=== PATIENT | male | born 1975 | race Caucasian/White ===

== ENCOUNTER 2020-03-23 11:05 | Emergency (ER) | payer BC ==
[2020-03-23] MEDS ORDERED: Aspirin 81 MG Tab.Chew PO ONE (11:07)
[2020-03-23] MEDS: Sodium Chloride 0.9% 10 ML Syringe FLUSH PRN ×4 (11:10→14:27)
[2020-03-23] MEDS ORDERED: Labetalol 20 MG/4 ML Syringe IVPUSH ONE ×2 (11:13→14:21)
[2020-03-23] MEDS: Nitroglycerin 0.4 MG Tab.SL SL PRN ×3 (11:16→11:30)
--- NOTE | 2020-03-23 11:19 | EDM.PDOC ---
ED HPI GENERAL MEDICAL PROBLEM - General Chief Complaint: Cardiovascular Problem Stated Complaint: CHEST PAIN Time Seen by Provider: 03/23/20 11:14 Source of Information: Reports: Patient History Limitations: Reports: No Limitations - History of Present Illness INITIAL COMMENTS - FREE TEXT/NARRATIVE: Presents with substernal chest pressure radiating to bilateral arms (worse on left), associated with SOB. Onset yesterday afternoon, symptoms wax and wane, worse with exertion. Denies prior h/o CAD. PMHx includes HTN, HLD, and T2DM. Father at 49yo from [place] and CVA. Patient quit smoking @3 weeks ago. Onset Date: 03/22/20 Location: Reports: Chest Severity: Moderate Associated Symptoms: Reports: Chest Pain, Shortness of Breath - Related Data Allergies Allergy/AdvReac Type Severity Reaction Status Date / Time No Known Allergies Allergy Verified 03/23/20 11:19 Home Meds: Home Meds Gabapentin [Neurontin] 300 mg PO QID 03/23/20 [History] Losartan/Hydrochlorothiazide [Hyzaar 100-25 Tablet] 1 tab PO DAILY 03/23/20 [History] atenoloL [Atenolol] 50 mg PO DAILY 03/23/20 [History] atorvaSTATin [Lipitor] 20 mg PO DAILY 03/23/20 [History] metFORMIN [Glucophage XR] 500 mg PO BID 03/23/20 [History] Past Medical History Cardiovascular History: Reports: High Cholesterol, Hypertension. Denies: CAD, [place] Neurological History: Reports: Neuropathy, Diabetic Endocrine/Metabolic History: Reports: Diabetes, Type II Social & Family History - Family History Family Medical History: No Pertinent Family History - Tobacco Use Tobacco Use Status *Q: Former Tobacco User Tobacco Use Within Last Twelve Months: Cigarettes - Recreational Drug Use Recreational Drug Use: No ED ROS GENERAL - Review of Systems Review Of Systems: Comprehensive ROS is negative, except as noted in HPI. ED EXAM, GENERAL - Physical Exam Exam: See Below Exam Limited By: No Limitations General Appearance: Alert, WD/WN, No Apparent Distress Throat/Mouth: No Airway Compromise Head: Atraumatic, Normocephalic Neck: Full Range of Motion Respiratory/Chest: No Respiratory Distress, Lungs Clear, Normal Breath Sounds, No Accessory Muscle Use, Chest Non-Tender Cardiovascular: Regular Rate, Rhythm, No Edema, No Gallop, No Murmur GI/Abdominal: Tender (epigastric) Back Exam: Full Range of Motion Extremities: Normal Range of Motion, Non-Tender, No Pedal Edema Neurological: Alert, Oriented, Normal Cognition, No Motor/Sensory Deficits Psychiatric: Normal Affect, Normal Mood Skin Exam: Warm, Dry, Intact #1 Interpretation EKG Date: 03/23/20 Time: 11:05 Rhythm: NSR Rate (Beats/Min): 87 [place]: Normal P-Wave: Present QRS: Normal ST-T: Normal QT: Normal Comparison: NA - No Prior EKG Course - Vital Signs Last Recorded V/S: Last Vital Signs Temp 37.0 C 03/23/20 11:05 Pulse 87 03/23/20 11:05 Resp 18 03/23/20 11:05 BP 167/102 H 03/23/20 11:30 Pulse Ox 100 03/23/20 11:05 - Orders/Labs/Meds Orders: Active Orders 24 hr Category Date Time Status EKG Documentation Completion [RC] ASDIRECTED Care 03/23/20 11:07 Active Sodium Chloride 0.9% [Saline Flush] Med 03/23/20 11:07 Active 10 ml FLUSH ASDIRECTED PRN Saline Lock Insert [OM.PC] Routine Oth 03/23/20 11:07 Ordered EKG 12 Lead [EK] Stat Ther 03/23/20 11:06 Ordered Medication Orders Sodium Chloride (Saline Flush) 10 ml FLUSH ASDIRECTED PRN PRN Reason: Keep Vein Open Last Admin: 03/23/20 12:08 Dose: 10 ml Documented by: Admin: 03/23/20 11:30 Dose: 10 ml Documented by: Admin: 03/23/20 11:10 Dose: 10 ml Documented by: IMELDA Labs: Laboratory Tests 03/23/20 03/23/20 03/23/20 Range/Units 11:10 11:10 11:10 WBC 7.0 (3.2-10.1) x10-3/uL RBC 6.02 H (3.90-5.90) x10(6)uL Hgb 16.7 (12.9-17.7) g/dL Hct 50.6 H (38.3-50.1) % MCV 84.0 (80.8-98.7) fL MCH 27.8 (27.0-33.3) pg MCHC 33.1 (28.7-35.3) g/dL RDW 12.6 (12.4-15.0) % Plt Count 266 (117-477) x10(3)uL MPV 8.2 (6.7-11.0) fL Neut % (Auto) 56.6 (40.3-71.8) % Lymph % (Auto) 35.4 (15.8-45.3) % [place] % (Auto) 5.1 L (5.5-15.2) % Eos % (Auto) 1.8 (0.1-6.8) % Baso % (Auto) 1.1 (0.3-3.8) % Neut # (Auto) 3.9 (1.7-6.9) x10-3/uL Lymph # (Auto) 2.5 (0.5-4.5) x10-3/uL [place] # (Auto) 0.4 (0.0-1.2) x10-3/uL Eos # (Auto) 0.1 (0.0-0.6) x10-3/uL Baso # (Auto) 0.1 (0.0-0.3) x10-3/uL PT 10.2 (9.0-11.1) sec INR 0.94 L (1.00-1.24) APTT 23.1 L (24.4-33.2) SECONDS D-Dimer, Quantitative 0.24 (0.0-0.59) mg/LFEU Sodium 135 (135-145) mmol/L Potassium 4.0 (3.5-5.3) mmol/L Chloride 97 L (100-110) mmol/L Carbon Dioxide 27 (21-32) mmol/L BUN 10 (7-18) mg/dL Creatinine 1.1 (0.70-1.30) mg/dL Est Cr Clr Drug Dosing TNP Estimated GFR (MDRD) > 60 (>60) BUN/Creatinine Ratio 9.1 (9-20) Glucose 154 H (80-116) mg/dL Calcium 9.0 (8.6-10.2) mg/dL Total Bilirubin 0.5 (0.1-1.3) mg/dL AST 16 (5-25) IU/L ALT 33 (12-36) U/L Alkaline Phosphatase 56 (56-112) IU/L Troponin I (4.0-60.3) pg/mL Total Protein 8.7 H (6.0-8.0) g/dL Albumin 4.4 (3.5-5.2) g/dL Globulin 4.3 g/dL Albumin/Globulin Ratio 1.0 Lipase (73-393) U/L 03/23/20 03/23/20 Range/Units 11:10 11:10 WBC (3.2-10.1) x10-3/uL RBC (3.90-5.90) x10(6)uL Hgb (12.9-17.7) g/dL Hct (38.3-50.1) % MCV (80.8-98.7) fL MCH (27.0-33.3) pg MCHC (28.7-35.3) g/dL RDW (12.4-15.0) % Plt Count (117-477) x10(3)uL MPV (6.7-11.0) fL Neut % (Auto) (40.3-71.8) % Lymph % (Auto) (15.8-45.3) % [place] % (Auto) (5.5-15.2) % Eos % (Auto) (0.1-6.8) % Baso % (Auto) (0.3-3.8) % Neut # (Auto) (1.7-6.9) x10-3/uL Lymph # (Auto) (0.5-4.5) x10-3/uL [place] # (Auto) (0.0-1.2) x10-3/uL Eos # (Auto) (0.0-0.6) x10-3/uL Baso # (Auto) (0.0-0.3) x10-3/uL PT (9.0-11.1) sec INR (1.00-1.24) APTT (24.4-33.2) SECONDS D-Dimer, Quantitative (0.0-0.59) mg/LFEU Sodium (135-145) mmol/L Potassium (3.5-5.3) mmol/L Chloride (100-110) mmol/L Carbon Dioxide (21-32) mmol/L BUN (7-18) mg/dL Creatinine (0.70-1.30) mg/dL Est Cr Clr Drug Dosing Estimated GFR (MDRD) (>60) BUN/Creatinine Ratio (9-20) Glucose (80-116) mg/dL Calcium (8.6-10.2) mg/dL Total Bilirubin (0.1-1.3) mg/dL AST (5-25) IU/L ALT (12-36) U/L Alkaline Phosphatase (56-112) IU/L Troponin I 5.5 (4.0-60.3) pg/mL Total Protein (6.0-8.0) g/dL Albumin (3.5-5.2) g/dL Globulin g/dL Albumin/Globulin Ratio Lipase 90 (73-393) U/L Meds: Medications Generic Name Dose Route Start Last Admin Trade Name Freq PRN Reason Stop Dose Admin Sodium Chloride 10 ml 03/23/20 11:07 03/23/20 12:08 Saline Flush FLUSH 10 ml ASDIRECTED PRN Administration Keep Vein Open Discontinued Medications Generic Name Dose Route Start Last Admin Trade Name Freq PRN Reason Stop Dose Admin Aspirin 324 mg 03/23/20 11:07 03/23/20 11:10 Aspirin PO 03/23/20 11:08 324 mg ONETIME ONE Administration Iopamidol 100 ml 03/23/20 12:11 03/23/20 12:21 Isovue-370 (76%) IV 03/23/20 12:12 100 ml . DIRECTED ONE Administration Labetalol HCl 10 mg 03/23/20 11:13 03/23/20 11:24 Normodyne IVPUSH 03/23/20 11:14 10 mg ONETIME ONE Administration Protocol Morphine Sulfate 4 mg 03/23/20 12:00 03/23/20 12:07 Morphine IVPUSH 03/23/20 12:01 4 mg ONETIME ONE Administration Morphine Sulfate 4 mg 03/23/20 13:40 Morphine IVPUSH 03/23/20 13:41 ONETIME ONE Nitroglycerin 0.4 mg 03/23/20 11:13 03/23/20 11:30 Nitrostat SL 0.4 mg Q5M PRN Administration Chest Pain Nitroglycerin 1 gm 03/23/20 13:41 Nitro-Bid 2% TOP 03/23/20 13:42 ONETIME ONE Pantoprazole Sodium 40 mg 03/23/20 11:20 03/23/20 11:36 Protonix Iv IVPUSH 03/23/20 11:21 40 mg ONETIME ONE Administration - Radiology Interpretation Free Text/Narrative:: CXR: No acute process. (ED provider interpretation) CTA Chest: IMPRESSION: 1. Probable artifactual changes due to motion at the ascending aorta and pulmonary artery, no definite intimal dissection was seen. No aneurysmic dilatation was seen. 2. Mild interstitial prominence in the lungs could be on the basis of fluid overload and should be correlated clinically. 3. Mild degree of obstructive airway disease suggested. Dictated by: Uziel Payton MD. CTA Chest was reviewed by Dr. Garcia ([facility] CT Surgeon) and [facility] Radiologist. No aortic dissection was seen. - Re-Assessments/Exams Free Text/Narrative Re-Assessment/Exam: 03/23/20 12:05 ASA 324mg PO, NTG SL x 3, Labetolol 10mg IV, and Protonix 40mg IV given. Chest pain improved from 8/10 to 5/10 (now more localized to left side of chest, described as an ache). SOB improved. BP improved to 140/93. Heart score=4 03/23/20 13:25 Chest pain improved to 3/10. 03/23/20 13:48 Dr. Cuevas accepts patient for transfer to [facility]. Departure - Departure Time of Disposition: 13:51 Disposition: DC/Tfer to Acute Hospital 02 Reason for Transfer *Q: Other Condition: Fair Clinical Impression: Unstable angina, Hypertension, poor control Forms: ED Department Discharge Sepsis Event Note (ED) - Focused Exam Vital Signs: Vital Signs Temp Pulse Resp BP BP Pulse Ox 03/23/20 11:30 167/102 H 03/23/20 11:25 186/108 H 03/23/20 11:16 206/107 H 03/23/20 11:05 37.0 C 87 18 228/118 H 100 - My Orders Last 24 Hours: My Active Orders 03/23/20 11:06 EKG 12 Lead [EK] Stat 03/23/20 11:07 EKG Documentation Completion [RC] ASDIRECTED Sodium Chloride 0.9% [Saline Flush] 10 ml FLUSH ASDIRECTED PRN Saline Lock Insert [OM.PC] Routine - Assessment/Plan Last 24 Hours: My Active Orders 03/23/20 11:06 EKG 12 Lead [EK] Stat 03/23/20 11:07 EKG Documentation Completion [RC] ASDIRECTED Sodium Chloride 0.9% [Saline Flush] 10 ml FLUSH ASDIRECTED PRN Saline Lock Insert [OM.PC] Routine
[2020-03-23] MEDS ORDERED: Pantoprazole 40 MG Vial IVPUSH ONE (11:20)
[2020-03-23 11:54] VITALS: BP 228/118; PULSE 87
[2020-03-23] MEDS ORDERED: Morphine 4 MG/ML VIAL IVPUSH ONE ×2 (12:00→13:40)
--- NOTE | 2020-03-23 12:08 | CR ---
INDICATION: Chest pain. CHEST ONE VIEW: Portable AP upright view of the chest was obtained 03/23/20 - no comparisons. The heart is normal in size and shape. The aorta is somewhat tortuous. Overlying EKG leads are noted. No consolidating pneumonia or effusion was seen. IMPRESSION: No acute process. MTDD
[2020-03-23] MEDS ORDERED: Iopamidol 755 Mg/ML 100 ML Bottle IV ONE (12:11)
--- NOTE | 2020-03-23 12:53 | CT ---
INDICATION: Chest pain, question aortic dissection. CT ANGIOGRAPHY OF THE CHEST: Spiral 3.75 mm axial sections were obtained through the chest with 100 cc Isovue 370 at 3 cc per second with sagittal and coronal reconstructions and axial reconstructions 03/23/20. What appears to be motion artifact is noted at the main pulmonary artery and the proximal to distal ascending aorta. Most likely the appearance of motion is due to the heart motion. The artifact has an appearance suggesting intimal dissection, but is as mentioned above felt to be artifactual. No definite true intimal dissection or aneurysmic dilatation of the aorta or pulmonary artery was identified. The heart did not appear enlarged. No pericardial effusion was seen. No upper significant upper abdominal abnormality was identified. A definite active infiltrate or effusion was not identified although the lungs may be very slightly congested with a mild degree of interstitial prominence. This could be on the basis of fluid overload, but should be correlated clinically. There appear to be some emphysematous changes with no definite active infiltrate or effusion otherwise suggested. IMPRESSION: 1. Probable artifactual changes due to motion at the ascending aorta and pulmonary artery, no definite intimal dissection was seen. No aneurysmic dilatation was seen. 2. Mild interstitial prominence in the lungs could be on the basis of fluid overload and should be correlated clinically. 3. Mild degree of obstructive airway disease suggested. Total exam DLP was 1088.58 mGy-cm. Report was called to Dr. Villarreal at approximately [address] [facility]
[2020-03-23] MEDS ORDERED: Nitroglycerin 2% Oint 1 GM UD Packet TOP ONE (13:41)
== END 2020-03-23 15:15 ==
LOC: FB.ED 11:05
DX: I20.0 Unstable angina (principal); I10 Essential (primary) hypertension; E78.00 Pure hypercholesterolemia, unspecified; E11.40 Type 2 diabetes mellitus with diabetic neuropathy, unspecified; Z87.891 Personal history of nicotine dependence; Z79.899 Other long term (current) drug therapy
CPT/HCPCS: 36415; 71045; 71275; 80053; 83690; 84484; 85025; 85379; 85610; 85730; 93005; 96374; 96375; 96376; 99285-25; A9270-GY; C9113; J2270; J3490; Q9967

== ENCOUNTER 2020-08-23 11:35 | Emergency (ER) | payer BC ==
[2020-08-23] MEDS ORDERED: Sodium Chloride 0.9% 1,000 ML IV ONE (11:45)
[2020-08-23] MEDS ORDERED: Ticagrelor 90 MG Tab PO ONE ×2 (11:51→11:54)
[2020-08-23] MEDS ORDERED: Heparin Sodium 5,000 Units/ML Vial ONE (11:55)
[2020-08-23] MEDS ORDERED: Heparin Sodium 5,000 Units/ML Vial IVPUSH ONE (12:00)
[2020-08-23] MEDS ORDERED: Heparin Sodium/0.45% NaCl 25,000 UNITS/500 ML BAG IV SCH (12:00)
--- NOTE | 2020-08-23 12:00 | PCM.EKG ---
#1 Interpretation EKG Date: 08/23/20 Time: 11:32 EKG Interpretation Comments: Sinus rhythm, rate 62, normal axis, ST-T segment elevations in leads II, 3, aVF and reciprocal depression in leads V1 and V2. This is likely an inferior/posterior acute [place]. Diffuse ST-T segment changes in the remaining leads. Likely ST segment elevation in aVR.
--- NOTE | 2020-08-23 12:06 | EDM.PDOC ---
ED HPI GENERAL MEDICAL PROBLEM - General Chief Complaint: Chest Pain Stated Complaint: CHEST/NECK PAIN Time Seen by Provider: 08/23/20 11:35 Source of Information: Reports: Old Records History Limitations: Reports: No Limitations - History of Present Illness INITIAL COMMENTS - FREE TEXT/NARRATIVE: 44-year-old gentleman came to the emergency department via private vehicle due to acute left-sided chest pain. He states that the pain is a crushing type pain and radiates to the right side of his chest into his left shoulder. He does have a recent history of [place]. He states that he had a myocardial infarction in April 2020. He states that he quit smoking after that myocardial infarction has been taking medications as directed including a baby aspirin each day. He was given 481 mg aspirins to chew on admission. Review of EKG shows likely inferior/posterior [place]. Patient was given 180 mg Brilinta, 4000 unit heparin bolus followed by a 1000 unit/h heparin drip. Patient will be transferred to [facility] via EMS. Dr. Barba will be the receiving rocket motor tester. I spoke with Dr. Barba on the phone prior to transfer. Onset: Sudden - Related Data Allergies Allergy/AdvReac Type Severity Reaction Status Date / Time No Known Allergies Allergy Verified 03/23/20 11:19 Home Meds: Home Meds Gabapentin [Neurontin] 300 mg PO QID 03/23/20 [History] Losartan/Hydrochlorothiazide [Hyzaar 100-25 Tablet] 1 tab PO DAILY 03/23/20 [History] atenoloL [Atenolol] 50 mg PO DAILY 03/23/20 [History] atorvaSTATin [Lipitor] 20 mg PO DAILY 03/23/20 [History] metFORMIN [Glucophage XR] 500 mg PO BID 03/23/20 [History] Past Medical History Cardiovascular History: Reports: High Cholesterol, Hypertension Respiratory History: Reports: Sleep Apnea Neurological History: Reports: Neuropathy, Diabetic Endocrine/Metabolic History: Reports: Diabetes, Type II - Infectious Disease History Infectious Disease History: Reports: Chicken Pox - Past Surgical History Cardiovascular Surgical History: Reports: None Respiratory Surgical History: Reports: None Social & Family History - Family History Family Medical History: No Pertinent Family History - Caffeine Use Caffeine Use: Reports: Coffee, Soda ED ROS GENERAL - Review of Systems Review Of Systems: See Below Constitutional: Reports: No Symptoms HEENT: Reports: No Symptoms Respiratory: Reports: Shortness of Breath Cardiovascular: Reports: Chest Pain, Edema Endocrine: Reports: No Symptoms GI/Abdominal: Reports: No Symptoms : Reports: No Symptoms Musculoskeletal: Reports: No Symptoms Skin: Reports: No Symptoms Neurological: Reports: No Symptoms Psychiatric: Reports: Anxiety Hematologic/Lymphatic: Reports: No Symptoms Immunologic: Reports: No Symptoms ED EXAM, GENERAL - Physical Exam Exam: See Below Exam Limited By: No Limitations General Appearance: Alert, WD/WN, Moderate Distress Head: Atraumatic, Normocephalic Respiratory/Chest: No Respiratory Distress, Crackles Cardiovascular: Normal Peripheral Pulses, No Rub, Tachycardia. No: Diastolic Murmur, Systolic Murmur Peripheral Pulses: 2+: Radial (L), Radial (R), Dorsalis Pedis (L), Dorsalis Pedis (R) GI/Abdominal: Normal Bowel Sounds, Non-Tender Psychiatric: Anxious Skin Exam: Warm, Dry Course - Orders/Labs/Meds Orders: Active Orders 24 hr Category Date Time Status EKG Documentation Completion [RC] ASDIRECTED Care 08/23/20 11:47 Active EKG Documentation Completion [RC] STAT Care 08/23/20 11:47 Active Chest 1V Frontal [CR] Stat Exams 08/23/20 Taken COMPREHENSIVE METABOLIC PN,CMP [CHEM] Stat Lab 08/23/20 11:45 Received LACTATE SEPSIS W/ REFLEX [CHEM] Stat Lab 08/23/20 11:45 Received PRO B-TYPE NATRIUR PEPT,BNPPRO [CHEM] Stat Lab 08/23/20 11:45 Received TROPONIN I [CHEM] Stat Lab 08/23/20 11:45 Received Heparin Sodium Med 08/23/20 12:00 Once 4,000 units IVPUSH ONETIME ONE Sodium Chloride 0.9% [Normal Saline] 1,000 ml Med 08/23/20 11:45 Active IV .BOLUS EKG 12 Lead [EK] Routine Ther 08/23/20 11:47 Ordered Medication Orders Heparin Sodium (Porcine) (Heparin Sodium 5,000 Units/Ml Vial) 4,000 units IVPUSH ONETIME ONE Stop: 08/23/20 12:01 Sodium Chloride (Normal Saline) 1,000 mls @ 999 mls/hr IV .BOLUS ONE Stop: 08/23/20 12:45 Labs: Laboratory Tests 08/23/20 Range/Units 11:45 WBC 13.1 H (3.2-10.1) x10-3/uL RBC 5.77 (3.90-5.90) x10(6)uL Hgb 16.5 (12.9-17.7) g/dL Hct 50.0 (38.3-50.1) % MCV 86.7 (80.8-98.7) fL MCH 28.6 (27.0-33.3) pg MCHC 33.0 (28.7-35.3) g/dL RDW 13.5 (12.4-15.0) % Plt Count 317 (117-477) x10(3)uL MPV 8.3 (6.7-11.0) fL Neut % (Auto) 79.6 H (40.3-71.8) % Lymph % (Auto) 15.2 L (15.8-45.3) % [place] % (Auto) 4.0 L (5.5-15.2) % Eos % (Auto) 0.4 (0.1-6.8) % Baso % (Auto) 0.8 (0.3-3.8) % Neut # (Auto) 10.4 H (1.7-6.9) x10-3/uL Lymph # (Auto) 2.0 (0.5-4.5) x10-3/uL [place] # (Auto) 0.5 (0.0-1.2) x10-3/uL Eos # (Auto) 0.1 (0.0-0.6) x10-3/uL Baso # (Auto) 0.1 (0.0-0.3) x10-3/uL Meds: Medications Generic Name Dose Route Start Last Admin Trade Name Freq PRN Reason Stop Dose Admin Heparin Sodium (Porcine) 4,000 units 08/23/20 12:00 Heparin Sodium 5,000 Units/Ml Vial IVPUSH 08/23/20 12:01 ONETIME ONE Sodium Chloride 1,000 mls @ 999 mls/hr 08/23/20 11:45 Normal Saline IV 08/23/20 12:45 .BOLUS ONE Discontinued Medications Generic Name Dose Route Start Last Admin Trade Name Freq PRN Reason Stop Dose Admin Heparin Sodium (Porcine) Confirm 08/23/20 11:55 Heparin Sodium 5,000 Units/Ml Vial Administered 08/23/20 11:56 Dose 5,000 units .ROUTE .STK-MED ONE Ticagrelor 180 mg 08/23/20 11:51 Ticagrelor 90 Mg Tab PO 08/23/20 11:52 ONETIME ONE Ticagrelor Confirm 08/23/20 11:54 Ticagrelor 90 Mg Tab Administered 08/23/20 11:55 Dose 180 mg PO .STK-MED ONE Departure - Departure Time of Disposition: 12:08 Disposition: DC/Tfer to Critical [facility] 66 Reason for Transfer *Q: Primary PCI Indicated Clinical Impression: Acute myocardial infarction Qualifiers: Myocardial infarction type: ST elevation myocardial infarction Involved coronary artery: right coronary artery Qualified Code(s): I21.11 - ST elevation (STEMI) myocardial infarction involving right coronary artery Forms: ED Department Discharge - My Orders Last 24 Hours: My Active Orders 08/23/20 Chest 1V Frontal [CR] Stat 08/23/20 11:45 COMPREHENSIVE METABOLIC PN,CMP [CHEM] Stat LACTATE SEPSIS W/ REFLEX [CHEM] Stat PRO B-TYPE NATRIUR PEPT,BNPPRO [CHEM] Stat TROPONIN I [CHEM] Stat Sodium Chloride 0.9% [Normal Saline] 1,000 ml IV .BOLUS 08/23/20 11:47 EKG Documentation Completion [RC] ASDIRECTED EKG Documentation Completion [RC] STAT EKG 12 Lead [EK] Routine 08/23/20 12:00 Heparin Sodium 4,000 units IVPUSH ONETIME ONE - Assessment/Plan Last 24 Hours: My Active Orders 08/23/20 Chest 1V Frontal [CR] Stat 08/23/20 11:45 COMPREHENSIVE METABOLIC PN,CMP [CHEM] Stat LACTATE SEPSIS W/ REFLEX [CHEM] Stat PRO B-TYPE NATRIUR PEPT,BNPPRO [CHEM] Stat TROPONIN I [CHEM] Stat Sodium Chloride 0.9% [Normal Saline] 1,000 ml IV .BOLUS 08/23/20 11:47 EKG Documentation Completion [RC] ASDIRECTED EKG Documentation Completion [RC] STAT EKG 12 Lead [EK] Routine 08/23/20 12:00 Heparin Sodium 4,000 units IVPUSH ONETIME ONE
[2020-08-23 19:43] VITALS: BP 195/124; PULSE 60
[2020-08-23] MEDS ORDERED: Aspirin 81 MG Tab.Chew PO ONE (19:46)
== END 2020-08-23 12:10 | disposition critical access hospital (66) ==
LOC: FB.ED 11:35
DX: I21.11 ST elevation (STEMI) myocardial infarction involving right coronary artery (principal); I10 Essential (primary) hypertension; E78.00 Pure hypercholesterolemia, unspecified; E11.40 Type 2 diabetes mellitus with diabetic neuropathy, unspecified; Z79.82 Long term (current) use of aspirin; Z79.84 Long term (current) use of oral hypoglycemic drugs; Z79.899 Other long term (current) drug therapy
CPT/HCPCS: 36415; 71045; 80053; 83605; 83880; 84484; 85025; 93005; 96374; 99285-25; A9270-GY; J1644; J7030